=== PATIENT | female | born 1955 | race Caucasian/White ===

== ENCOUNTER 2017-02-19 09:53 | Inpatient (IN) ==
--- NOTE | 2017-02-18 21:30 | Discharge Summary ---
<AndriymandijoseTess L - Last Filed: 02/18/17 21:27> Date of Encounter: 02/18/17 - Discharge Diagnosis (1) Arthritis of knee, left Priority: Primary Status: Acute (2) Status post total knee replacement, left Priority: Primary Status: Acute (3) Obesity Priority: Secondary Status: Chronic Qualifiers: Obesity type: due to excess calories Obesity classification: unspecified obesity classification Serious obesity comorbidity presence: without serious comorbidity Qualified Code(s): E66.09 - Other obesity due to excess calories; Z68.31 - Body mass index (BMI) 31.0-31.9, adult - Discharge Medications Home Medications: Aspirin Enteric Coated [Aspirin EC] 325 mg PO DAILY #21 tablet. 02/18/17 [Rx] OxyCODONE Immed Rel [Roxicodone 5 MG] 5 - 10 mg PO Q6HR PRN #40 tablet 02/18/17 [Rx] Allergies/Adverse Reactions: Allergies No Known Allergies Allergy (Verified 02/19/17 10:24) Primary care physician: Kaley Roberts - Patient Status Disposition: Home, Self-Care Condition: Good - Discharge Instructions Follow Up With: Kaley Roberts [Primary Care Provider] - - Hospital Course Hospital course: Ms. Agrawal is a 62 year old female - Time Spent with Patient Total time spent providing and/or coordinating discharge services: <Andrew Winn - Last Filed: 02/21/17 06:23> Date of Encounter: 02/21/17 Time of Encounter: 06:22 - Discharge Diagnosis (1) Status post total knee replacement, right Priority: Secondary Status: Chronic (2) Arthritis of knee, left Priority: Primary Status: Chronic (3) Status post total knee replacement, left Priority: Primary Status: Acute (4) Obesity Status: Chronic Qualifiers: Obesity type: due to excess calories Obesity classification: adult class 1 (BMI 30 ? 34.9) Serious obesity comorbidity presence: without serious comorbidity Body mass index: BMI 31.0-31.9 Qualified Code(s): E66.09 - Other obesity due to excess calories; Z68.31 - Body mass index (BMI) 31.0-31.9, adult Primary care physician: Kaley Roberts - Patient Status Functional capacity at discharge: uses cane/walker Overall status at discharge: patient is progressing back to baseline - Hospital Course Hospital course: Ms. Agrawal is a 62 year old female Status post right total knee replacement.The patient had an uneventful postoperative course. They received antibiotics and physical therapy and were discharged in stable condition. There will follow-up in the office in 2 weeks. - Time Spent with Patient Total time spent providing and/or coordinating discharge services:
[2017-02-19] MEDS ORDERED: CeFAZolin Pre 2,000 MG/100 ML 2,000 MG/100 ML BAG IVPB ONE (10:07)
[2017-02-19] MEDS ORDERED: Lidocaine -MPF 1% 2 ML VIAL ID ONE (10:07)
[2017-02-19] MEDS: Ringers Solution, Lactated 1,000 ML IVC SCH ×2 (10:21→15:25)
--- NOTE | 2017-02-19 10:39 | History & Physical Report ---
Date of Encounter: 02/19/17 Time of Encounter: 10:39 24 Hour HP Update - Instructions Instructions: If the History and Physical is less than 30 days old and was completed prior to A.M. admission and or procedure and has NOT been updated on calendar day of procedure please complete this update prior to performing procedure. - Update Patient reports changes in Medical Condition: No Changes in examination, assessment, or condition: No Changes in Medication: No Preop tests/diagnostics Reviewed: Yes Surgery Remains Indicated: Yes Consent for Planned Operative Procedure(s) Verified: Yes - Pre-Operative Checklist Preoperative Checklist Indicated: No Prophylactic Antibiotic Ordered: Yes Is VTE Prophylaxis Indicated?: Yes
[2017-02-19] MEDS ORDERED: Metoclopramide 10 MG/2 ML VIAL IVP ONE (11:20)
[2017-02-19] MEDS ORDERED: Scopolamine Patch 1.5 MG PATCH.TD72 TD ONE (11:20)
--- NOTE | 2017-02-19 11:24 | Anesthesia Evaluation PreOp ---
Date of Encounter: 02/19/17 Time of Encounter: 11:22 - Past History Planned Operation: Left total knee arthroplasty Cardiac History: Denies any Significant Hx Pulmonary History: Denies Any Significant HX PLATE DEVELOPER History: Denies Any Significant HX Other Medical History: Other (arthritis) Anesthesia History: Problems (nausea - even with scop patch, hoarseness for two weeks after last knee replacement) Alcohol Use: none Drug use: none Medications and Allergies Aspirin Enteric Coated [Aspirin EC] 325 mg PO DAILY #21 tablet. 02/18/17 [Rx] OxyCODONE Immed Rel [Roxicodone 5 MG] 5 - 10 mg PO Q6HR PRN #40 tablet 02/18/17 [Rx] Allergies No Known Allergies Allergy (Verified 02/19/17 10:24) - Meds/Allergy Pre-op Review Medications Reviewed: Yes Allergies Reviewed: Yes Beta Blockers on Current Med List: No Anesthesia Results - Labs Laboratory Tests 02/12/17 02/12/17 02/12/17 15:25 15:25 15:25 WBC 7.8 Hgb 13.4 Hct 40.5 Plt Count 202 PT 11.5 INR 1.1 APTT 28.2 Sodium 143 Potassium 3.8 Chloride 104 Carbon Dioxide 27 BUN 19 Creatinine 0.83 Est GFR ( Amer) > 60 Est GFR (Non-Af Amer) > 60 BUN/Creatinine Ratio 23 - Imaging EKG: report reviewed, image reviewed (SINUS RHYTHM LOW QRS VOLTAGE IN PRECORDIAL LEADS) Anesthesia Exam Last Vital Signs Temp 98.5 F 02/19/17 10:10 Pulse 77 02/19/17 10:10 Resp 18 02/19/17 10:10 BP 138/75 02/19/17 10:10 Pulse Ox 98 02/19/17 10:10 Weight: 85 kg NPO (# of Hours): >> 8 hrs - HEENT Pupil (Motor): Pupils equal, EOMI Mallampati: II Teeth: Normal Oral Opening: Greater than 3 - PLATE DEVELOPER LOC: Oriented PLATE DEVELOPER Motor: Normal RUE, Normal LUE, Normal RLE, Normal LLE, Normal Face - Cardiac Rhythm: Regular Murmur: None - Pulmonary Breath Sounds: bilateral Clear Respiratory Effort: Symmetrical Anesthesia Assess/Plan ASA Score: 2 Modified Melville Scale for Level of Consciousness: Cooperative, oriented, and tranquil Anesthetic Plan: General, Regional, Precautions (scop patch and reglan) Monitoring Plan: Standard Monitors Recovery Plan: PACU
[2017-02-19] MEDS ORDERED: Ondansetron 4 MG/2 ML VIAL ONE (11:57)
[2017-02-19] MEDS ORDERED: Dexamethasone 4 MG/ML VIAL ONE (11:57)
[2017-02-19] MEDS ORDERED: *HR* Midazolam HCl 2 MG/2 ML VIAL ONE (11:57)
[2017-02-19] MEDS ORDERED: *HR* Propofol 200 MG/20 ML VIAL IVP ONE (11:57)
[2017-02-19] MEDS ORDERED: *HR* FentaNYL (PF) 100 MCG/2 ML VIAL ONE (11:57)
[2017-02-19] MEDS ORDERED: Lidocaine -MPF 2% 2 ML VIAL ONE (11:57)
[2017-02-19] MEDS ORDERED: ROPIVACAINE HCL/PF 0.5% 30 ML VIAL ONE (12:43)
--- NOTE | 2017-02-19 13:04 | Anesthesia Procedures ---
Date of Encounter: 02/19/17 Time of Encounter: 12:58 Procedures: Anesthesia - Nerve Block Procedure Date: 02/19/17 Time: 12:58 Allergies/Adv Reactions: nkda Pre-op Diagnosis: Left knee pain Surgical Procedure: Left total knee Checklist: Correct Patient Identifier, Correct procedure, History checked Correct side: Left Blood Thinner: No Monitor Applied: EKG, BP, Pulse Oximetry Sedation: Versed (mg): 2 Sedation: Fentanyl (mcg): 100 Indication: Post Op Analgesia Pre-op Neuro Deficits: No Block Type: Femoral Sterile Technique: Yes Ultrasound used: Yes Anatomy identified: Yes Visual spread of Local: Yes Neuro Stimulation: Yes Nerve Stimulator Range: 0.2 - 0.4 mA Blood on Needle Aspiration: No Smooth Injection of Local: Yes Pain with Injection of Local: No Prep: Chlorhexadine Needle: 22 x 50 mm Stimuplex Local: Ropivacaine Volume (cc): 30 Number of Attempts: 1 Complications: None/effective block
--- NOTE | 2017-02-19 14:13 | Orthopedic Operative Note ---
Date of procedure: 02/19/17 Pre-op diagnosis: Left knee arthritis Post-op diagnosis: same Procedure: Procedure: Left Total knee replacement Estimated blood loss: 300 cc Hardware: Metal and polyethylene replacement. Arthrex Femur: 5 Tibia: 4 PS insert: 30 Patella: 12 Exam Under anesthesia: Full flexion and extension no instability Procedural Notes: Grade 4 arthritic changes medial compartment patellofemoral joint. Operative procedure: The patient was brought to the operating room and placed on the operating room table. After general anesthesia was administered the operative knee was examined. Findings were noted in the exam under anesthesia. The operative extremity was prepped and draped in sterile surgical fashion. The patient received IV antibiotics prior to skin incision. A standard midline incision was made centered over the patella. The incision was made through the skin and subcutaneous tissue. A medial parapatellar tendon approach was performed. Care was taken to preserve tissue along the medial aspect of the patella. And to protect the patella tendon. The deep MCL was released off the medial tibia. The infra patella fat pad was excised. Knee was brought into flexion. She noted to have grade 4 arthritic changes medial compartment and patellofemoral joint. The entry hole was made for the intramedullary femoral guide. The guide was seated in 6 degrees of valgus. Anterior cut was made followed by the distal cut. The ACL the PCL the medial and the lateral menisci were excised. The tibia was subluxed forward. The entry hole was made for the intramedullary tibial guide. Guide was seated to resect 2 mm off the more abnormal side. The knee was brought into flexion the distal femur was sized to a 5. The femoral guide was seated, the anterior cut was made followed by the posterior condylar cut, followed by the chamfer cuts. The finishing guide was seated the box cut was made and the lug holes were drilled. The tibia was sized to a 4, the tibial tray was seated and prepared with the large drill followed by the fin cutter. Trial reduction revealed full extension no varus valgus instability with the appropriate 12 PS Sanam. The patella was everted and cut was made at the level of the insertion of the quadriceps and patella tendon. The patella was sized the guide was seated and the lug holes are drilled. Trial reduction revealed excellent patella tracking. All trial components were removed all bony surfaces were irrigated. The tibia was cemented first followed by the femur. The 12 PS Sanam was seated and the knee was brought into full extension. The patella was cemented and held in place with the patellar holding clamp. After the cement had hardened, the knee sat for 2 minutes with a Betadine saline solution. The knee was then irrigated out with 2 L of pulse irrigation. The knee was closed by the PA. The extensor mechanism was closed with #2 FiberWire suture and #2 PDS suture. The subcutaneous tissue was then irrigated and closed deep with #1 PDS suture superficially with 0 PDS suture and skin was closed with skin dorothy. The patient was then placed in a sterile dressing and a postoperative brace extubated and transferred to recovery room in stable condition. Anesthesia: GETDenis Surgeon: Andrew Winn Condition: stable Disposition: PACU
[2017-02-19] MEDS ORDERED: Ondansetron 4 MG/2 ML VIAL IVP PRN ×2 (14:21→15:34)
[2017-02-19] MEDS ORDERED: *HR* HYDROmorphone 2 MG/ML SYRINGE ONE (14:43)
[2017-02-19] MEDS: *HR* HYDROmorphone (PF) 1 MG/ML SYRINGE IVP PRN ×3 (14:53→15:13)
[2017-02-19 15:15] LABS: Hematocrit 37.8 % (35.3-44.9); Hemoglobin 12.7 g/dL (11.5-15.4)
--- NOTE | 2017-02-19 15:28 | Anesthesia Evaluation Post Op ---
Date of Encounter: 02/19/17 Time of Encounter: 15:25 - Lungs Lungs: Clear Ascult./Percussion - Airway Airway: Non-obstructed - Cardiovascular Baseline Rhythm - Mental Status Mental Status: Alert & Oriented, Answers Appropriately - Pain Pain Scale: 4 Pain Scale used: Numeric (1 - 10) - Nausea Vomiting Nausea Vomiting: Not Present - Hydration Hydration: Tolerates oral liquids, Ice chips - Discharge PostOp Status: Transfer Patient to floor
[2017-02-19] MEDS ORDERED: Naloxone 0.4 MG/ML INJ IVP PRN (15:34)
[2017-02-19] MEDS ORDERED: Ringers Solution, Lactated 1,000 ML IVC SCH (15:34)
[2017-02-19] MEDS ORDERED: *HR* OxyCODONE Immed Rel 5 MG TABLET PO PRN (15:34)
[2017-02-19] MEDS ORDERED: MOM Conc 10 ML UD.LIQ PO PRN (15:34)
[2017-02-19] MEDS ORDERED: *HR* HYDROmorphone (PF) 1 MG/ML SYRINGE IVP PRN (15:34)
[2017-02-19] MEDS ORDERED: Temazepam 15 MG CAPSULE PO PRN (15:34)
[2017-02-19] MEDS ORDERED: Sennosides 8.6 MG TABLET PO PRN (15:34)
[2017-02-19] MEDS: *HR* OxyCODONE Immed Rel 5 MG TABLET PO PRN ×2 (16:12→21:20)
[2017-02-19] MEDS: ceFAZolin 2,000 MG in D5% in Water 100 ML IVPB SCH (17:06)
[2017-02-19] MEDS: *HR* Enoxaparin 30 MG/0.3 ML SYRINGE SQ SCH (17:38)
[2017-02-19] MEDS ORDERED: *HR* Enoxaparin 30 MG/0.3 ML SYRINGE SQ SCH (18:00)
[2017-02-20] MEDS: ceFAZolin 2,000 MG in D5% in Water 100 ML IVPB SCH (00:40)
[2017-02-20 04:54] LABS: Hematocrit 34.1 % (35.3-44.9); Hemoglobin 11.3 g/dL (11.5-15.4)
[2017-02-20] MEDS: *HR* OxyCODONE Immed Rel 5 MG TABLET PO PRN ×3 (04:55→19:38)
[2017-02-20 05:07] LABS: BUN/Creatinine Ratio 22 (6-26); Blood Urea Nitrogen 16 mg/dL (7-20); Carbon Dioxide 27 mEq/L (19-29); Chloride 102 mEq/L (98-109); Glucose 120 mg/dL (70-99); Osmolality,Calculated 284 (280-300); Potassium 4.3 mEq/L (3.5-4.5); Sodium 136 mEq/L (136-145); eGFR For African Americans > 60 (> 60); eGFR For Non-African Americans > 60 (> 60)
[2017-02-20] MEDS: *HR* Enoxaparin 30 MG/0.3 ML SYRINGE SQ SCH ×2 (05:13→17:57)
--- NOTE | 2017-02-20 12:26 | Event Note ---
Date of Encounter: 02/20/17 Time of Encounter: 12:26 PCR - POD#1 - Left Knee TKR Patient seen at bedside. Pain control: adequate Participating in PT. All questions and concerns addressed. Educated on use of incentive spirometer, ambulation, and hydration. Patient educated on post-operative restrictions and care. Addressed: D/C plan: Plan to D/C today with outpatient PT
--- NOTE | 2017-02-20 16:59 | Orthopedics Progress Note ---
Date of Encounter: 02/20/17 Time of Encounter: 08:00 - Assessment and Plan (1) Arthritis of knee, left Current Visit: Yes Status: Chronic POD#1 - seen by Mary Patient doing well, A&O in bed, Pain controlled. Vitals stable. Afebrile. H/H - Stable - 11.3/34.1- asymptomatic Plan: LLE: WBAT D/C to home with Outpatient (2) Status post total knee replacement, left Current Visit: Yes Status: Acute (3) Obesity Current Visit: Yes Status: Chronic Qualifiers: Obesity type: due to excess calories Obesity classification: adult class 1 (BMI 30 ? 34.9) Serious obesity comorbidity presence: without serious comorbidity Body mass index: BMI 31.0-31.9 Qualified Code(s): E66.09 - Other obesity due to excess calories; Z68.31 - Body mass index (BMI) 31.0-31.9, adult Subjective Principal diagnosis: Left TKR 02/19/17 Interval history: POD#1 - seen by Mary Patient doing well, A&O in bed, Pain controlled. Vitals stable. Afebrile. H/H - Stable - 11.3/34.1- asymptomatic LLE: Minimal swelling, no erythema or ecchymosis noted No calf tenderness or warmth noted. ROM limited. NV intact distally. Plan: LLE: WBAT D/C to home with Outpatient Objective Vital signs: Vital Signs Temp Pulse Resp BP Pulse Ox 02/20/17 11:36 99.5 F 91 120/67 96 02/20/17 06:35 98.4 F 78 18 114/68 93 02/20/17 03:45 98.0 F 61 17 135/60 98 02/19/17 23:49 97.8 F 66 16 108/70 99 02/19/17 18:36 97.6 F 66 15 111/71 99 02/19/17 17:44 97.6 F 74 16 122/75 96 Intake and Output 02/20/17 02/20/17 02/20/17 07:59 15:59 23:59 Intake Total 120 / 120 Output Total 300 / 300 800 / 800 Balance -300 / -300 -680 / -680 Intake: Oral 120 / 120 Output: Urine 300 / 300 800 / 800 Other: Meal Breakfast Percent of Meal Consumed 50% Weight 85 kg Patient Weight 02/20/17 23:59 Weight 85 kg Incision: clean and dry - Labs CBC & BMP: 02/20/17 04:36 02/20/17 04:36 Labs: Abnormal lab results Hgb 11.3 g/dL (11.5-15.4) L 02/20/17 04:36 Hct 34.1 % (35.3-44.9) L 02/20/17 04:36 Glucose 120 mg/dL (70-99) H 02/20/17 04:36 - VTE Documentation of Mechanical Device: Venous foot pump, device Consult Discharge Plan - Plan Referrals: Kaley Roberts [Primary Care Provider] -
[2017-02-21 05:08] LABS: Hematocrit 31.8 % (35.3-44.9); Hemoglobin 10.7 g/dL (11.5-15.4)
[2017-02-21 05:21] LABS: BUN/Creatinine Ratio 15 (6-26); Blood Urea Nitrogen 10 mg/dL (7-20); Carbon Dioxide 26 mEq/L (19-29); Chloride 102 mEq/L (98-109); Glucose 118 mg/dL (70-99); Osmolality,Calculated 282 (280-300); Sodium 136 mEq/L (136-145); eGFR For African Americans > 60 (> 60); eGFR For Non-African Americans > 60 (> 60)
[2017-02-21 05:28] LABS: Potassium 3.9 mEq/L (3.5-4.5)
--- NOTE | 2017-02-21 06:23 | Orthopedics Progress Note ---
Date of Encounter: 02/21/17 Time of Encounter: 06:23 - Assessment and Plan (1) Status post total knee replacement, right Current Visit: No Status: Chronic (2) Arthritis of knee, left Current Visit: Yes Status: Chronic (3) Status post total knee replacement, left Current Visit: Yes Status: Acute (4) Obesity Current Visit: Yes Status: Chronic Qualifiers: Obesity type: due to excess calories Obesity classification: adult class 1 (BMI 30 ? 34.9) Serious obesity comorbidity presence: without serious comorbidity Body mass index: BMI 31.0-31.9 Qualified Code(s): E66.09 - Other obesity due to excess calories; Z68.31 - Body mass index (BMI) 31.0-31.9, adult Subjective Principal diagnosis: Left TKR 02/19/17 Interval history: Patient was seen this morning doing well without complaints. Afebrile vital signs stable. Operative extremity: Neurovascularly intact Dressing clean dry and intact Calves nontender Assessment and plan: Continue with postoperative care Hematocrit 31.5 discharged today Objective Vital signs: Vital Signs Temp Pulse Resp BP Pulse Ox 02/21/17 00:59 99.1 F 91 18 140/85 92 02/20/17 22:15 99.2 F 100 19 151/84 100 02/20/17 16:59 99.0 F 89 16 129/66 95 02/20/17 11:36 99.5 F 91 120/67 96 02/20/17 06:35 98.4 F 78 18 114/68 93 Intake and Output 02/20/17 02/20/17 02/21/17 15:59 23:59 07:59 Intake Total 120 / 120 240 / 240 400 / 400 Output Total 800 / 800 Balance -680 / -680 240 / 240 400 / 400 Intake: Oral 120 / 120 240 / 240 400 / 400 Output: Urine 800 / 800 Other: Meal Breakfast Dinner Percent of Meal Consumed 50% 90% # Voids 2 - Labs CBC & BMP: 02/21/17 04:35 02/21/17 04:35 Labs: Abnormal lab results Hgb 10.7 g/dL (11.5-15.4) L 02/21/17 04:35 Hct 31.8 % (35.3-44.9) L 02/21/17 04:35 Glucose 118 mg/dL (70-99) H 02/21/17 04:35 - VTE Documentation of Mechanical Device: Venous foot pump, device Consult Discharge Plan - Plan Referrals: Kaley Roberts [Primary Care Provider] -
[2017-02-21] MEDS: *HR* OxyCODONE Immed Rel 5 MG TABLET PO PRN ×2 (06:37→10:45)
[2017-02-21] MEDS: *HR* Enoxaparin 30 MG/0.3 ML SYRINGE SQ SCH (06:42)
[2017-02-21 07:12] VITALS: BP 143/78
== END 2017-02-21 10:58 | disposition home or self-care (01) | DRG 470 ==
LOC: SAMDAY 09:53 → 3NENU 15:32
PROVIDERS: ADMIT Orthopaedic Surgery; ATTEND Orthopaedic Surgery